=== PATIENT | female | born 1955 | race Caucasian/White ===

== ENCOUNTER → 2019-01-23 09:33 | Outpatient (CLI) | payer OTHER, SELFPAY ==
--- NOTE | 2019-01-23 | DI.ECHO.S_ITS ---
[facility]---------+ [facility] +---------+ : : [address] : [place] : : : : [id number] : : : : Phone: [phone]+ Echocardiogram Report + + :Name: RAHEL LOPEZ Study Date: 01/23/2019 Height: 63 in : :[facility] Exam Location: [place] Weight: 180 lb: : Gender: Female BSA: 1.8 m2 : :: 1955 Age: 63 yrs BP: 98/60 mmHg: :Reason For Study: PALPITATIONS : : Performed By: Brenden Feldman : :Referring: ANGÉLICA ARCEO : + + Interpretation Summary The ejection fraction is estimated to be 60-65%. There is trace mitral regurgitation. There is no significant valvular heart disease. Procedure: A two-dimensional transthoracic echocardiogram with color flow and Doppler was performed. The study quality was technically good. There is no prior echocardiogram noted for this patient. The patient was in normal sinus rhythm during the exam. Left Ventricle: The left ventricle is normal in size. There is normal left ventricular wall thickness. The ejection fraction is estimated to be 60-65%. There are no focal wall motion abnormalities. Right Ventricle: The right ventricle is normal in size and function. Atria: Both atria are normal in size. The interatrial septum is intact with no evidence for an atrial septal defect. Mitral Valve: The mitral valve is normal in structure and function. There is trace mitral regurgitation. Aortic Valve: The aortic valve is trileaflet. The aortic valve opens well. No aortic regurgitation is present. Tricuspid Valve: The tricuspid valve is normal in structure and function. There is a trace or physiologic amount of tricuspid regurgitation. Pulmonary artery pressures cannot be estimated because of the lack of a measurable TR jet velocity. Pulmonic Valve: The pulmonic valve is normal in structure and function. There is trace pulmonic regurgitation. Great Vessels: The aortic root is normal size. The dimensions of the ascending aorta are normal. The pulmonary artery is normal size. The IVC is of normal diameter and collapses greater than 50% with a sniff. This suggests a low right atrial pressure of 3 mm Hg. Pericardium/ Pleura There is no pericardial effusion. There is no pleural effusion. MMode/2D Measurements & Calculations LVIDd: 4.7 cm LVOT diam: 2.1 cm LVIDs: 2.6 cm Ao root diam: 2.8 cm FS: 45.4 % Aortic Jxn: 2.2 cm EPSS: 0.47 cm asc Aorta Diam: 2.7 cm IVSd: 0.67 cm Ao Arch Diam (Prox Trans): 2.7 cm LVPWd: 0.75 cm LV zhong. diameter/BSA (cm/m^2): 2.5 LV sys. diameter/BSA (cm/m^2): 1.4 LA dimension: 3.9 cm RA long axis: 4.1 cm LA A2 area: 19.3 cm2 RA area: 12.8 cm2 LA A4 area: 20.7 cm2 RA vol: 33.5 ml LA length (vol): 5.9 cm RA : 18.1 ml/m2 LA vol: 57.1 ml IVC diam: 1.9 cm LA vol index: 30.9 ml/m2 Doppler Measurements & Calculations Ao V2 max: 147.0 cm/sec LVOT Max Fabio: 120.1 cm/sec Ao V2 mean: 106.7 cm/sec LV V1 max P.8 mmHg Ao max P.6 mmHg LV V1 VTI: 26.8 cm Ao mean P.9 mmHg LIUDMILA(I,D): 3.3 cm2 Ao V2 VTI: 27.2 cm LIUDMILA(V,D): 2.7 cm2 sev ratio: 0.99 LIUDMILA indexed to BSA (cm^2/m^2): 1.8 MV E max fabio: 68.0 cm/sec PA V2 max: 81.0 cm/sec MV A max fabio: 88.2 cm/sec PA V2 mean: 58.1 cm/sec MV E/A: 0.77 PA mean P.5 mmHg Med Peak E' Fabio: 5.1 cm/sec PA pr(Accel): 34.1 mmHg E/E' med: 13.4 PA Accel Time: 0.09 sec Lat Peak E' Fabio: 7.4 cm/sec E/E' lat: 9.1 E/e' average: 11.3 MV dec time: 0.22 sec SV(LVOT): 88.8 ml Reading Physician:04:30 PM
--- NOTE | 2019-01-23 14:52 | PM.TREADMILL ---
Cardiac Stress Test Report Referral & Results Date Patient Seen: 01/23/19 Requesting provider: Jerry Hayes Indication: Arrhythmia Rest ECG: Unremarkable Procedure Note: Today following both written and verbal informed consent the patient was exercised according to a standard Edd protocol patient went for a total of 9 minutes 2nd achieving a maximum heart rate of 138 maximum systolic blood pressure of 162. This is approximately 10.1 METS. Exercise was terminated at this point because of targets were met. Patient was also given Cardiolite through a previously started Hep-Lock IV by the diagnostic imaging staff approximately 1 minute prior to the cessation of exercise. Patient had widespread ST T segment depression that was slightly upsloping with exercise. This was in virtually every lead. This almost immediately returned to baseline with cessation of activity. Occasional PVC was identified that was symptomatic Function aerobic impairment rates at least-40% on the active scale, off scale, or an exercise capacity of 40% better than average Impression: Nonspecific ST-T segment changes almost certainly nonischemic as above. See perfusion imaging report for further details Excellent exercise capacity Rare ventricular dysrhythmia as above Please note: Actual ECG tracings can be found in the PACS system.
--- NOTE | 2019-01-24 07:27 | DI.NM.S_ITS ---
DATE OF SERVICE: 01/23/2019 PROCEDURE: Exercise perfusion study. INDICATIONS: Palpitations, hyperlipidemia. RADIOPHARMACEUTICAL: 26.2 mCi technetium-99m Myoview IV was injected at stress and 11.6 mCi technetium-99m Myoview IV was injected at rest. CARDIAC STRESS: The patient underwent an exercise perfusion study under the supervision of an attending staff. She walked on Edd protocol for 9 minutes and 01 seconds and achieved 87% of target heart rate with normal blood pressure response. Baseline EKG revealed sinus rhythm with repolarization changes with some ST segment flattening and upsloping. During stress, there was nonspecific upsloping ST depression diffusely, which returned to baseline less than 1 minute in recovery. No significant arrhythmias seen. There were occasional PVCs. No chest pain. Functional aerobic impairment -40%. She achieved 10.1 METs of workload. RAW DATA: There was significant breast shadow seen. The breast shadow was engulfing the whole heart. GATED STUDY: Resting LV ejection fraction 73% and stress LV ejection fracture 79% without any obvious wall motion abnormalities. Resting end-diastolic volume 70 mL. No transient ischemic dilatation. TID ratio 1.91, which is within normal limits. Lung/heart ratio 0.36, which is within normal limits. MYOCARDIAL PERFUSION: Stress supine and resting supine images revealed a small- [id number] [id number]-yw-rbguwlhr-decreased perfusion of the distal anterior wall, anterior apex, which got partially improved during prone images. No reversible ischemia. CONCLUSION: 1. No obvious reversible ischemia. 2. Stress supine and resting supine images revealed [id number]-[id number]- decreased perfusion of the distal anterior wall and anterior apex, which got partially improved during prone images. Most likely, this defect is due to breast tissue attenuation artifact and some persistent tissue attenuation artifact. During raw data, significant breast shadow was seen. Anterior wall is moving well, which goes against the diagnosis of a previous transmural myocardial infarction. She has good exercise tolerance. No convincing ischemic EKG changes. She has baseline repolarization abnormalities. No transient ischemic dilatation. Overall, this is a low-risk myocardial perfusion scan. RAHEL LOPEZ - THEO/nikolay/ts doc#: [id number]/job#: [id number] dd: 01/23/2019 17:17:00 dt: 01/24/2019 07:12:00 DICTATING MD/COPIES TO: Toyin Joseph MD COPIES MNE: IVORY
== END ==
PROVIDERS: Visit Provider Family Medicine
DX: I49.9 Cardiac arrhythmia, unspecified (principal); R00.2 Palpitations; E78.5 Hyperlipidemia, unspecified
CPT/HCPCS: 78452; 93016; 93017; 93018; 93306; A9502

== ENCOUNTER → 2020-09-15 09:57 | Outpatient (CLI) | payer OTHER, SELFPAY ==
--- NOTE | 2020-09-15 | DI.RAD.S_ITS ---
PROCEDURE: FL BARIUM SWALLOW INDICATIONS: Gastro-esophageal reflux disease without esophagit COMPARISON: None. FINDINGS: Function: There is normal esophageal peristalsis. Mild gastroesophageal reflux. There is normal transit of a calibrated barium tablet through the esophagus into the stomach. Morphology: Air-contrast images demonstrate normal mucosal morphology. Single contrast views show no esophageal strictures, extrinsic mass effects, or diverticula. Limited images of the stomach demonstrate normal appearance. There is a small sliding hiatal hernia. IMPRESSION: 1. Mild gastroesophageal reflux. 2. Small sliding hiatal hernia. Dictated by: Monet Magdaleno M.D. on 09/15/2020 at 11:20 Approved by: Monet Magdaleno M.D. on 09/15/2020 at 11:23
== END ==
PROVIDERS: PCP Family Medicine; Referring Provider Family Medicine; Visit Provider Family Medicine
DX: K21.9 Gastro-esophageal reflux disease without esophagitis (principal); K44.9 Diaphragmatic hernia without obstruction or gangrene
CPT/HCPCS: 74220